=== PATIENT | female | born 1965 | race Asian ===

== ENCOUNTER 2022-11-04 07:09 | Outpatient (CLI) | payer OTHER, SELFPAY ==
--- NOTE | ~2022-11-04 | MM_ITS ---
EXAMINATION: MM screening saji BI w maty HISTORY: Screening TECHNIQUE: Craniocaudal and mediolateral oblique 3-D tomosynthesis images were obtained and synthetic 2-D images were generated. CAD analysis was submitted and interpreted. COMPARISON: No prior studies BREAST PARENCHYMAL COMPOSITION: The breasts are heterogeneously dense, which may obscure small masses . FINDINGS: There are no suspicious masses, calcifications or architectural distortion in the right rachael ast to suggest malignancy. There is a focal mass in the upper outer quadrant of the left breast conta ining calcifications. There is a focal asymmetry centrally in the left breast on MLO view. IMPRESSION: 1. Left breast mass and focal asymmetry. 2. Additional spot compression and mediolateral views with possible follow-up breast ultrasound recom mended. BI-RADS Category 0: Incomplete: Needs additional imaging evaluation. Reviewed, dictated and finalized at location A. LSTERER HELPER IMPRESSION: 1. Left breast mass and focal asymmetry. 2. Additional spot compression and mediolateral views with possible follow-up b reast ultrasound recommended. BI-RADS Category 0: Incomplete: Needs additional imaging evaluation.
== END 2022-11-04 07:10 | disposition home or self-care (01) ==
LOC: ANHIMG 07:16
PROVIDERS: PCP Obstetrics & Gynecology; Visit Provider Student in an Organized Health Care Education/Training Program
DX: Z12.31 Encounter for screening mammogram for malignant neoplasm of breast (principal); R92.8 Other abnormal and inconclusive findings on diagnostic imaging of breast
CPT/HCPCS: 77063; 77067

== ENCOUNTER 2023-01-30 12:50 | Outpatient (CLI) | payer OTHER, SELFPAY ==
--- NOTE | ~2023-01-30 | MMUS_ITS ---
EXAMINATION: MM diagnostic saji LT w maty, US breast LT complete HISTORY: Left upper outer quadrant breast mass with calcifications and focal asymmetry in central lef t breast on MLO view where reported on 11/04/2022 screening mammogram TECHNIQUE: Additional 3-D tomosynthesis images of the left breast were performed and synthetic 2-D im ages were generated. CAD analysis was submitted and interpreted. High resolution complete left breast ultrasound examination including all 4 quadrants and subareolar area was performed. COMPARISON: 11/04/2022 bilateral screening mammogram FINDINGS: MAMMOGRAPHIC FINDINGS: Circumscribed approximately 5 x 6 mm mass with several benign-appearing superficial calcifications is noted in the upper outer left breast anteriorly, benign in appearance, likely a partially calcified benign fibroadenoma. There is a benign calcified microhematomas. No suspicious mass, architectural distortion, malignant microcalcifications, skin thickening or retra ction of the left wrist is detected. ULTRASOUND: 1:00 4 cm from nipple: Parallel circumscribed hypoechoic 5 x 7 mm lesion without internal vascularity or posterior shadowing, which likely corresponds to the mammographic finding in the upper outer quad rant. 3:00 4 cm from nipple: 2.9 x 2.5 x 3.4 mm circumscribed sonolucent lesion with posterior enhancement, without internal vascularity or posterior shadowing, likely benign cyst. IMPRESSION: 1. Benign findings 2. Routine mammographic screening is recommended BI-RADS Category 2: Benign finding(s). Reviewed, dictated and finalized at location A. IMPRESSION: 1. Benign findings 2. Routine mammographic screening is recommended BI-RADS Category 2: Benign finding(s).
== END 2023-01-30 12:51 | disposition home or self-care (01) ==
LOC: ANHIMG 12:51
PROVIDERS: PCP Emergency Medicine; Visit Provider Obstetrics & Gynecology
DX: R92.8 Other abnormal and inconclusive findings on diagnostic imaging of breast (principal)
CPT/HCPCS: 76641; 77061; 77065; G0279

== ENCOUNTER 2023-09-16 16:01 | Emergency (ER) | payer OTHER, SELFPAY ==
--- NOTE | ~2023-09-16 | CT_ITS ---
EXAMINATION: CT abdomen pelvis w con DATE: 09/16/2023 17:50 INDICATION: generalized abdominal pain, vomiting, back pain TECHNIQUE: Computed tomography (CT) of the abdomen and pelvis was performed with 100 mL Omnipaque-350 intravenous contrast. Automated exposure control and iterative reconstruction technique were employe d. The dose-length product was 550.19 mGy-cm. COMPARISON: None. FINDINGS: Lower thorax: Minimal dependent atelectasis. Liver: Normal. Biliary/Gallbladder: Gallbladder is normal. No bile duct dilation. Pancreas: 5 mm cyst in the pancreatic body. No duct dilation. Spleen: Normal. Adrenals:No mass. Kidneys: No suspicious mass, obstructing stone, or hydronephrosis. Subcentimeter right upper pole hyp odensity, too small to characterize, but statistically most likely represents a cyst. GI tract: Moderate distal esophageal and gastric wall edema. No small or large bowel dilation. 7-8 mm diameter appendix, without hyperemia or any surrounding inflammatory change. Diverticulosis without diverticulitis. Mesentery/Peritoneum: No ascites, mass, or free air. Retroperitoneum: No mass. Atherosclerotic abdominal aortic and/or arterial calcifications. Pelvis: Pelvic organs are within normal limits. Soft Tissues: Soft tissues and body wall unremarkable. Bones: No acute osseous finding. IMPRESSION: Moderate esophagitis/gastritis. Incidental 5 mm pancreatic body cyst, recommend follow-up CT abdomen and pelvis with contrast in one year to assess stability. 7-8 mm diameter appendix, without any indication of inflammatory change. This is likely a normal find ing for this patient. Reviewed, dictated and finalized at location K. ESS MAKER IMPRESSION: Moderate esophagitis/gastritis. Incidental 5 mm pancreatic body cyst, recommend follow-up CT abdomen and pelvis with contrast in one year to assess stability. 7-8 mm diameter appendix, without any indication of inflammatory change. This i s likely a normal finding for this patient.
--- NOTE | ~2023-09-16 | CT_ITS ---
EXAMINATION: CT brain wo con DATE: 09/16/2023 17:50 INDICATION: vertigo . TECHNIQUE: Computed tomography (CT) of the head was performed without intravenous contrast. The mA wa s adjusted according to patient size. Iterative reconstruction technique was employed. The dose-lengt h product was 529.67 mGy-cm. COMPARISON: None. FINDINGS: No acute intracranial hemorrhage or extra-axial fluid collection. No hydrocephalus, mass, or herniation. No acute ischemic infarct. Unremarkable dural venous sinus attenuation. No acute osseous abnormality. The aerated spaces are clear. IMPRESSION: No acute intracranial process. Reviewed, dictated and finalized at location K. ENT CARRIER
[2023-09-16 15:59] VITALS: BP 140/80; PULSE 84; RESP 18; TEMP 36.8; O2SAT 100
--- NOTE | 2023-09-16 16:25 | ED.DIZZY ---
HPI - Dizziness General Chief Complaint: Dizziness Stated Complaint: dizzy with n/v Time Seen by Provider: 09/16/23 16:06 Source: patient Mode of arrival: ambulatory Limitations: no limitations History of Present Illness HPI Narrative: This is a 58-year-old female who presents to the ED via EMS for chief complaint of vomiting and dizziness onset 1 hour prior to arrival. Patient states that she was starting to feel sick and then had an episode of emesis. She reports after 4 episodes she started to feel dizzy. Reports it feels like the room is spinning. She feels like she has to keep her eyes closed. Denies abdominal pain but endorses back pain for the past 3 weeks. 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 Denies any problems with urination, bowel movements, neck pain, headache, chest pain, cough. Family states the patient has been under lot of stress family and work recently. Related Data Home Medications Medication Instructions Recorded Confirmed fvmozodvhbei-rzeupuxv-tberaww-folic 1 tablet PO DAILY 03/15/23 acid 400 mcg-vit K1 20 mcg tablet (One-A-Day Women's 50 Plus) Allergies Allergy/AdvReac Type Severity Reaction Status Date / Time No Known Allergies Allergy Verified 03/15/23 09:32 Review of Systems Review of Systems: All systems as dictated in [facility] Past Medical History Medical History Allergies delivery delivered Headache Surgical History Surgical History History of delivery Family History Family History Father Diabetes mellitus Heart problem Mother Diabetes mellitus Heart problem Sibling Diabetes mellitus Heart problem Social History Social History (Updated 03/15/23 @ 09:35 by Haritha Fields MA) Smoking status: Never smoker Alcohol intake: current Alcohol use details: occasional Substance use: never Lack of Transportation: No Lack of Food: Never True Current Housing: I Have Housing Concerned About Future Housing: No Difficulty Paying Gas/Electric Bills: No Difficulty Paying for Meds: No Currently Unemployed: No Education: Trade/Vocational Certificate Difficulty w/ Childcare or Family Care: No Living arrangements: with family Occupation/Education: occupation Gender identity (if verbalized by the patient): Female Sexual Orientation (if Verbalized by the Patient): Straight or Heterosexual Spiritual care concerns: No Exam Narrative: GENERAL: Appears ill. appears dry. HEAD: Normocephalic, atraumatic. EYES: PERRLA and EOMI. ENT: Nares clear, no rhinorrhea or epistaxis. Mucous membranes moist. Oropharynx without tonsillar hypertrophy exudate or other lesions. NECK: Supple. No adenopathy or masses. CHEST: No respiratory distress. Clear to auscultation. No wheezes rales or rhonchi HEART: Regular rate and rhythm. No murmur heard. Normal peripheral pulses. ABDOMEN: Generalized abdominal tenderness throughout the abdomen. Soft, nondistended, normal active bowel sounds. Negative peritoneal signs. MSK: Normal range of motion. No edema. SKIN: Warm, dry, no rash. NEURO: Alert and oriented x4. No focal deficits. 5/5 strength and sensation in the upper and lower extremities. No nystagmus. PSYCH: Normal mood and affect. Course Course Emergency Course: Re-evaluation at 5:30 p.m.: Feeling mildly improved. Re-evaluation at 6:19 p.m.: Feeling almost fully resolved. She would like to go home. Vital Signs Vital signs: Vital Signs Temperature 98.2 F 09/16/23 15:59 Pulse Rate 84 09/16/23 15:59 Respiratory Rate 18 09/16/23 15:59 Blood Pressure 140/80 09/16/23 15:59 Pulse Oximetry 100 09/16/23 15:59 Oxygen Delivery Room Air 09/16/23 15:59 Temperature 98.2 F 09/16/23 15:59 Pulse Rate 84
[2023-09-16 16:37] LABS: Basophils Percent Auto 0.4 % (0.2-1.2); Eosinophils Absolute Auto 0.3 K/mm3 (0-0.3); Eosinophils Percent Auto 2.8 % (0-4.4); Hematocrit 43.3 % (37.0-47.0); Hemoglobin 14.1 g/dL (12.0-15.0); Immature Granulocyte Absolute 0.12 K/mm3 (0.00-0.031); Immature Granulocyte Percent A 1.1 % (0-0.5); Lymphocytes Absolute Auto 2.09 K/mm3 (0.9-3.2); Lymphocytes Percent Auto 18.4 % (18.3-44.2); Mean Corpuscular HGB Conc 32.6 g/dl (32-36); Mean Corpuscular Hemoglobin 24.7 pg (26-34); Mean Corpuscular Volume 75.7 fl (80-100); Monocytes Absolute Auto 0.4 K/mm3 (0.1-0.6); Monocytes Percent Auto 3.8 % (2.6-8.5); Neutrophils Absolute Auto 8.4 K/mm3 (1.3-6.7); Neutrophils Percent Auto 73.5 % (45.5-73.1); Platelet Count Result 289 k/mm3 (150-375); Red Blood Count 5.72 M/mm3 (4.2-5.4); White Blood Count 11.4 K/mm3 (4.5-10.0)
[2023-09-16 16:47] LABS: Lipase 72 U/L (23-300)
[2023-09-16] MEDS: diphenhydrAMINE HCl INJ 50 MG/ML VIAL 25 MG IV PUSH (16:48)
[2023-09-16] MEDS: METOCLOPRAMIDE HCL INJ 10 MG/2 ML VIAL IV PUSH (16:48)
[2023-09-16] MEDS: SODIUM CHLORIDE 0.9% IV 1,000 ML 999 ML IV CONT (16:48)
[2023-09-16 16:49] LABS: Alanine Aminotransferase 25 U/L (6-35); Albumin Level 4.5 g/dL (3.5-5.1); Alkaline Phosphatase 92 U/L (38-126); Anion Gap 13 mmol/L (8-16); Aspartate Amino Transferase 23 U/L (14-36); Bilirubin,Total 0.5 mg/dL (0.2-1.3); Blood Urea Nitrogen 15 mg/dL (7-17); Calcium 9.3 mg/dL (8.4-10.2); Carbon Dioxide 22 mmol/L (22-30); Chloride 103 mmol/L (98-107); Estimated CRCL calculation 85 ml/min; Estimated Glomerular Filt Rate > 60; Glucose 176 mg/dL (65-110); Potassium 3.3 mmol/L (3.4-5.0); Sodium 138 mmol/L (137-145)
[2023-09-16 18:04] LABS: Appearance Urine Clear (Clear); Bacteria Urine None Seen /hpf; Bilirubin Urine Negative (Negative); Blood Urine Trace (Negative); Color Urine Yellow (Yellow); Glucose Urine UA Negative (Negative); Ketones Urine 3+ mg/dL (Negative); Leukocyte Esterase Ur Negative LEU/UL (Negative); Nitrate Urine Negative (Negative); Protein Urine 1+ mg/dL (Negative); RBC Urine 0-2 /hpf (0-2); Specific Grav Ur 1.026 (1.001-1.035); Squamous Epithelial Cell Urine Occasional /hpf (Few); Urobilinogen Urine 0.2 mg/dL (<2.0); WBC Urine 0-5 /hpf
[2023-09-16 18:05] LABS: Add Urine Microscopic? YES
[2023-09-16 18:25] VITALS: BP 137/89; PULSE 82; RESP 18; O2SAT 97
== END 2023-09-16 18:44 | disposition home or self-care (01) ==
PROVIDERS: Emergency Provider Physician Assistant; PCP Emergency Medicine
DX: R11.10 Vomiting, unspecified (principal)
CPT/HCPCS: 36415; 70450; 74177; 80053; 81001; 83690; 85025; 96361; 96374; 96375; 99284; J1200; J2765; J7030; Q9967

== ENCOUNTER 2023-09-20 09:05 | Outpatient (CLI) | payer OTHER, SELFPAY ==
[2023-09-20 14:37] LABS: Alanine Aminotransferase 21 U/L (6-35); Albumin Level 4.3 g/dL (3.5-5.1); Alkaline Phosphatase 81 U/L (38-126); Anion Gap 11 mmol/L (8-16); Aspartate Amino Transferase 36 U/L (14-36); Bilirubin,Total 0.7 mg/dL (0.2-1.3); Blood Urea Nitrogen 14 mg/dL (7-17); Calcium 9.3 mg/dL (8.4-10.2); Carbon Dioxide 28 mmol/L (22-30); Chloride 101 mmol/L (98-107); Cholesterol 193 mg/dL (0-200); Estimated Glomerular Filt Rate > 60; Glucose 90 mg/dL (65-110); HDL Direct 37 mg/dL; Potassium 4.4 mmol/L (3.4-5.0); Sodium 140 mmol/L (137-145); Triglycerides 152 mg/dL (<150)
[2023-09-20 14:48] LABS: LDL Cholesterol Direct 111 mg/dL
[2023-09-20 15:32] LABS: Hemoglobin A1C 5.3 % (<5.7)
== END 2023-09-20 09:06 | disposition home or self-care (01) ==
LOC: ANHGOSHLAB 09:06
PROVIDERS: PCP Emergency Medicine; Visit Provider Emergency Medicine
DX: R73.9 Hyperglycemia, unspecified (principal)
CPT/HCPCS: 36415; 80053; 80061; 83036

== ENCOUNTER 2024-04-12 15:58 | Outpatient (CLI) | payer BC, SELFPAY ==
[2024-04-12 18:56] LABS: Basophils Absolute Auto 0.1 K/mm3 (0.0-0.1); Basophils Percent Auto 0.6 % (0.2-1.2); Eosinophils Absolute Auto 0.6 K/mm3 (0-0.3); Eosinophils Percent Auto 5.9 % (0-4.4); Hematocrit 43.8 % (37.0-47.0); Hemoglobin 14.2 g/dL (12.0-15.0); Immature Granulocyte Absolute 0.05 K/mm3 (0.00-0.031); Immature Granulocyte Percent A 0.5 % (0-0.5); Lymphocytes Absolute Auto 2.36 K/mm3 (0.9-3.2); Lymphocytes Percent Auto 22.5 % (18.3-44.2); Mean Corpuscular HGB Conc 32.4 g/dl (32-36); Mean Corpuscular Hemoglobin 24.9 pg (26-34); Mean Corpuscular Volume 76.7 fl (80-100); Monocytes Absolute Auto 0.5 K/mm3 (0.1-0.6); Monocytes Percent Auto 4.7 % (2.6-8.5); Neutrophils Absolute Auto 6.9 K/mm3 (1.3-6.7); Neutrophils Percent Auto 65.8 % (45.5-73.1); Platelet Count Result 287 k/mm3 (150-375); Red Blood Count 5.71 M/mm3 (4.2-5.4); Red Cell Distribution Width 14.5 % (11.5-14.5); White Blood Count 10.5 K/mm3 (4.5-10.0)
[2024-04-12 19:14] LABS: Alanine Aminotransferase 18 U/L (6-35); Albumin Level 4.6 g/dL (3.5-5.1); Alkaline Phosphatase 80 U/L (38-126); Anion Gap 5 mmol/L (4-12); Aspartate Amino Transferase 28 U/L (14-36); Bilirubin,Total 0.4 mg/dL (0.2-1.3); Blood Urea Nitrogen 11 mg/dL (7-17); Calcium 9.3 mg/dL (8.4-10.2); Carbon Dioxide 29 mmol/L (22-30); Chloride 107 mmol/L (98-107); Estimated Glomerular Filt Rate > 60; Glucose 101 mg/dL (65-110); Sodium 141 mmol/L (137-145)
== END 2024-04-12 15:59 | disposition home or self-care (01) ==
LOC: ANHGOSHLAB 15:59
PROVIDERS: PCP Emergency Medicine; Visit Provider Emergency Medicine
DX: K62.5 Hemorrhage of anus and rectum (principal); R10.13 Epigastric pain
CPT/HCPCS: 36415; 80053; 85025

== ENCOUNTER 2024-05-10 00:21 | Day surgery (SDC) | payer BC, SELFPAY ==
--- NOTE | 2024-04-26 10:15 | SUR.PREOP ---
Patient called to reschedule his procedure since Dr. Reyes will be unavailable on May 27. Message left on pt's voicemail.
[2024-04-30 09:05] VITALS: BMI 23.3
[2024-05-10 08:42] VITALS: BP 124/89; PULSE 78; RESP 16; TEMP 36.1; O2SAT 100; BMI 23.9
[2024-05-10] MEDS: LACTATED RINGERS 1,000 ML 150 ML IV CONT (08:53)
--- NOTE | 2024-05-10 09:03 | PM.HPGS ---
History of Present Illness History of Present Illness Consent: Risks, benefits, and alternatives have been discussed and questions answered. Patient agrees to proceed with procedure. Chief complaint: Hemorrhage of anus and rectum, epigastric pain Narrative: Angella Burnette is a 59 year old female with epigastric pain and dyspepsia after some melas, here for egd and first colonoscopy- also noted blood in stools Review of Systems Review of Systems: All systems reviewed & are unremarkable except as noted in HPI and below PMFSH Past Medical History Medical History Allergies delivery delivered Headache Surgical History Surgical History History of delivery Family History Family History Father Diabetes mellitus Heart problem Mother Diabetes mellitus Heart problem Sibling Diabetes mellitus Heart problem Social History Social History Smoking status: Never smoker Alcohol intake: current Alcohol use details: Occasional beer Substance use: never Lack of Transportation: No Lack of Food: Never True Current Housing: I Have Housing Concerned About Future Housing: No Difficulty Paying Gas/Electric Bills: No Difficulty Paying for Meds: No Currently Unemployed: No Education: Trade/Vocational Certificate Difficulty w/ Childcare or Family Care: No Living arrangements: with family Occupation/Education: occupation Gender identity (if verbalized by the patient): Female Sexual Orientation (if Verbalized by the Patient): Straight or Heterosexual Spiritual care concerns: No Meds Home Medications and Allergies Home Medications Medication Instructions Recorded Confirmed Type vlnukjyxpedv-fgdnedrb-tpeuhga-folic 1 tablet PO DAILY 03/15/23 05/10/24 History acid 400 mcg-vit K1 20 mcg tablet (One-A-Day Women's 50 Plus) omeprazole 40 mg capsule,delayed 40 mg PO DAILY #30 caps 10/31/23 05/10/24 Rx release aspirin 81 mg capsule 81 mg PO DAILY 04/30/24 05/10/24 History Allergies Allergy/AdvReac Type Severity Reaction Status Date / Time No Known Allergies Allergy Verified 05/10/24 08:41 Vital Signs Vital Signs - 24 hr 05/10/24 08:42 Temperature 97.0 F L Pulse Rate 78 Respiratory Rate 16 Blood Pressure 124/89 Pulse Oximetry 100 Oxygen Delivery Room Air Exam Const: General: comfortable and no acute distress HENMT: Face/Nose/Sinus: Normal nares present Eyes: General: appearance normal, both eyes and all related structures Neck: Neck: no JVD Resp: Auscultation: clear to auscultation bilaterally Cardio: Rate: regular rate Rhythm: regular rhythm GI: Inspection: non-distended GI Palp: Yes Soft to palpation Skin: General skin exam: normal color Neuro: General: gait normal Speech: normal speech Extrem: General: normal to inspection Psych: Mental Status: mental status grossly normal Assessment and Plan Assessment and plan (1) Epigastric pain: Code(s): R10.13 - Epigastric pain Status: Acute Assessment and Plan: egd with bx (2) Blood per rectum: Code(s): K62.5 - Hemorrhage of anus and rectum Status: Acute Assessment and Plan: colonoscopy (3) Screening for colon cancer: Code(s): Z12.11 - Encounter for screening for malignant neoplasm of colon Status: Acute
--- NOTE | 2024-05-10 09:07 | WPDANESEPPF ---
Anes - Initial Pre Proc Eval Procedure: Operation Date: 05/10/24 10:00 Proposed Procedures p Esophagogastroduodenoscopy & Colonoscopy - Jose Antonio Lee MD Date/Time: 05/10/24 09:07 Surgeon: Jose Antonio Lee MD Pre Op Diagnosis: Hemorrhage of anus and rectum, epigastric pain Patient Data Age: 59 Gender: F Height: 1.57 m Weight: 59.3 kg Last Vital Signs Temp 97.0 F L 05/10/24 08:42 Pulse 78 05/10/24 08:42 Resp 16 05/10/24 08:42 BP 124/89 05/10/24 08:42 Pulse Ox 100 05/10/24 08:42 O2 Del Method Room Air 05/10/24 08:42 Allergies Allergy/AdvReac Type Severity Reaction Status Date / Time No Known Allergies Allergy Verified 05/10/24 08:41 Home Medications Medication Instructions Recorded Confirmed Type hjfvywnrozwp-clpocygt-twojwtj-folic 1 tablet PO DAILY 03/15/23 05/10/24 History acid 400 mcg-vit K1 20 mcg tablet (One-A-Day Women's 50 Plus) omeprazole 40 mg capsule,delayed 40 mg PO DAILY #30 caps 10/31/23 05/10/24 Rx release aspirin 81 mg capsule 81 mg PO DAILY 04/30/24 05/10/24 History Patient hx anesthesia problems: none Family hx anesthesia problems: none Results Review: All pre-operative results and documents have been reviewed as part of the pre-operative evaluation. [facility] Past Medical History Medical History Allergies delivery delivered Headache Surgical History Surgical History History of delivery Family History Family History Father Diabetes mellitus Heart problem Mother Diabetes mellitus Heart problem Sibling Diabetes mellitus Heart problem Social History Social History Smoking status: Never smoker Alcohol intake: current Alcohol use details: Occasional beer Substance use: never Lack of Transportation: No Lack of Food: Never True Current Housing: I Have Housing Concerned About Future Housing: No Difficulty Paying Gas/Electric Bills: No Difficulty Paying for Meds: No Currently Unemployed: No Education: Trade/Vocational Certificate Difficulty w/ Childcare or Family Care: No Living arrangements: with family Occupation/Education: occupation Gender identity (if verbalized by the patient): Female Sexual Orientation (if Verbalized by the Patient): Straight or Heterosexual Spiritual care concerns: No Anes - Eval Final PreProcedure Day of Procedure 05/10/24 09:07 Patient weight: overweight Heart: regular rate and rhythm Lungs: clear to auscultation Airway: Mallampati scale class II Neurological: alert and oriented Last oral intake: >/= 8 hours ASA classification: I Emergent: no Anesthetic plan: proceed Anesthesia type and monitoring: general GIVS and standard monitoring Results Review: All pre-operative results and documents have been reviewed as part of the pre-operative evaluation. Pt states that she can walk 1-2 fos, 1 mile without cp or sob. Informed Consent: The patient's anesthetic plan and its attendant risks and benefits were discussed with the patient/family/POA. Questions were solicited and answers provided to the satisfaction of the patient/family/POA.
--- NOTE | 2024-05-10 09:48 | SUR.OPER ---
EGD end 943 COLONOSCOPY START 947
[2024-05-10 10:02] VITALS: BP 101/66; PULSE 78; RESP 16; O2SAT 100
[2024-05-10 10:12] VITALS: BP 117/75; PULSE 69; RESP 16; O2SAT 97
[2024-05-10 10:22] VITALS: BP 135/84; PULSE 65; RESP 19; O2SAT 100
== END 2024-05-10 10:43 | disposition home or self-care (01) ==
PROVIDERS: PCP Emergency Medicine; Visit Provider Internal Medicine Gastroenterology
PROC: 0DJ08ZZ Inspection of Upper Intestinal Tract, Via Natural or Artificial Opening Endoscopic (ICD-10-PCS; CPT 43235; principal; 2024-05-10 10:00)
DX: K62.5 Hemorrhage of anus and rectum (principal); K57.30 Diverticulosis of large intestine without perforation or abscess without bleeding; D12.8 Benign neoplasm of rectum; K64.8 Other hemorrhoids; R10.13 Epigastric pain; K29.50 Unspecified chronic gastritis without bleeding
CPT/HCPCS: 43239; 45385; 88305; 88342; J7120

== ENCOUNTER 2025-04-23 18:35 | Emergency (ER) | payer OTHER, SELFPAY ==
--- NOTE | ~2025-04-23 | XR_ITS ---
XR chest 2V Ordering provider: Shelia Domingo APRN History: 60 years Female with . chest pain . Comparison: None. FINDINGS: MEDIASTINUM: The cardiac silhouette is not enlarged. LUNGS: No infiltrates, effusions or pneumothorax. OTHER: No free air under the diaphragm. IMPRESSION: No acute cardiopulmonary pathology. Reviewed, dictated and finalized at location A.
--- NOTE | 2025-04-23 18:37 | ECG_ITS ---
Test Date: 2025-04-23 18:41:58 Measurements Intervals Harrah Rate: 102 P: 8 ID: [id number] QRS: 29 QRSD: 94 T: -14 QT: 330 QTc: 432 Interpretive Statements SINUS TACHYCARDIA POSSIBLE LEFT ATRIAL ENLARGEMENT [-0.1mV P-WAVE IN V1/V2] LOW QRS VOLTAGE IN PRECORDIAL LEADS [QRS DEFLECTION < 1.0 mV IN CHEST LEADS] POSSIBLE INFERIOR MYOCARDIAL INFARCTION , OF INDETERMINATE AGE [30 ms Q WAVE IN II/aVF] No previous ECG available for comparison Electronically Signed On 04-24-2025 16:37:11 CDT by Arabella Corona
[2025-04-23 18:41] VITALS: BP 180/96; PULSE 101; RESP 18; TEMP 36.6; O2SAT 98
[2025-04-23] MEDS: ASPIRIN 81 MG CHEWABLE TABLET 324 MG PO (18:50)
[2025-04-23 18:53] LABS: Hematocrit 39.8 % (37.0-47.0); Hemoglobin 12.9 g/dL (12.0-15.0); Immature Granulocyte Percent A 0.3 % (0-0.5); Lymphocytes Absolute Auto 2.36 K/mm3 (0.9-3.2); Mean Corpuscular HGB Conc 32.4 g/dl (32-36); Mean Corpuscular Hemoglobin 23.8 pg (26-34); Mean Corpuscular Volume 73.6 fl (80-100); Nucleated Red Blood Cells Absolute Auto 0.000 K/mm3 (0.0-0.012); Nucleated Red Blood Cells Perc 0.0 % (0.0-0.2); Platelet Count Result 252 k/mm3 (150-375); Red Blood Count 5.41 M/mm3 (4.2-5.4); White Blood Count 9.8 K/mm3 (4.5-10.0)
[2025-04-23 19:03] LABS: INR 1.0; Prothrombin Time 13.1 Seconds (11.1-14.7)
[2025-04-23 19:04] LABS: Alanine Aminotransferase 30 U/L (6-35); Albumin Level 4.3 g/dL (3.5-5.1); Alkaline Phosphatase 70 U/L (38-126); Anion Gap 11 mmol/L (4-12); Aspartate Amino Transferase 38 U/L (14-36); Bilirubin,Total 0.3 mg/dL (0.2-1.3); Calcium 9.0 mg/dL (8.4-10.2); Carbon Dioxide 22 mmol/L (22-30); Chloride 107 mmol/L (98-107); Glucose 100 mg/dL (65-110); Lipase 82 U/L (23-300); Partial Thromboplastin Time 31.9 Seconds (22.3-36.8); Potassium 3.8 mmol/L (3.4-5.0); Sodium 140 mmol/L (137-145); Total Protein 8.1 g/dL (6.3-8.2)
--- NOTE | 2025-04-23 19:05 | ED_ITS ---
HPI - Chest Pain General Chief Complaint: Chest Pain Stated Complaint: chest pain Time Seen by Provider: 04/23/25 19:03 Source: patient and family () Mode of arrival: ambulatory Limitations: language barrier (Mauritian as second language but fluent) History of Present Illness HPI narrative: This is a 60-year-old female who presents with left-sided chest pain beginning this morning when she woke up. She reports that is radiating inframammary and radiating to left lower ribs. She does feel short of breath with this. She has been having some subjective fevers but not diaphoretic. She had been vomiting 2 days ago a little bit but not today and does not feel nauseated. States this has never happened before. Has not seen a shingles roofer helper. Her pain is 7/10 in severity after taking an Advil approximately 3:00 p.m.. She describes the pain like needles and sometimes sharp/stabbing.No edema. No trauma Cardiac risk factors HTN: No - states occasional high blood pressures but not consistently and no diagnosis of HTN and not on medications HLD: No DM: No Obese: Smoker: No Personal history MS/TIA/CVA: No Fam Hx MS in first degree relative <65yo: Yes (states sister had an MS at age 36; both parents had MS (in mid 60s, believes one might have been at age 67) Related Data Home Medications ?Medication ?Instructions ?Recorded ?Confirmed ?Last Taken ?Type kqhfnqmevnpo-[id number]-cldqscl-folic 1 tablet PO DAILY 03/15/23 05/10/24 Unknown History acid 400 mcg-vit K1 20 mcg tablet (One-A-Day Women's 50 Plus) aspirin 81 mg capsule 81 mg PO DAILY 04/30/24 05/10/24 Unknown History Allergies Allergy/AdvReac Type Severity Reaction Status Date / Time No Known Allergies Allergy Verified 05/10/24 08:41 COUNTS INCLUDE 234 BEDS AT THE [facility] Past Medical History Medical History Headache Allergies delivery delivered Surgical History Surgical History History of delivery Family History Family History Father Diabetes mellitus Heart problem Acute myocardial infarction, Onset Age: 67 Mother Diabetes mellitus Heart problem Acute myocardial infarction Sibling Diabetes mellitus Heart problem Acute myocardial infarction, Onset Age: 36 Social History Social History Social History: Smoking status: Never smoker Alcohol intake: current Alcohol use details: Occasional beer Substance use: never Lack of Transportation: No Lack of Food: Never True Current Housing: I Have Housing Concerned About Future Housing: No Difficulty Paying Gas/Electric Bills: No Difficulty Paying for Meds: No Currently Unemployed: No Education: Trade/Vocational Certificate Difficulty w/ Childcare or Family Care: No Living arrangements: with family Occupation/Education: occupation Gender identity (if verbalized by the patient): Female Sexual Orientation (if Verbalized by the Patient): Straight or Heterosexual Spiritual care concerns: No Exam 2 Narrative: GENERAL: Well-appearing, well-nourished, and in no acute distress. HEAD: Normocephalic, atraumatic. EYES: Non injected, non icteric ENT: Nares clear, no rhinorrhea or epistaxis. Gross auditory acuity intact. NECK: Supple. No meningismus. CHEST: Speaking in full sentences. No respiratory distress. Lungs clear to auscultation HEART: Regular rate and rhythm at the time of my exam. . ABDOMEN: Soft, nondistended. EXTREMITIES: Normal range of motion. No lower extremity edema. SKIN: Warm, dry, no rash, including no rash/vesicles over area of pain NEURO: No focal deficits. Alert and oriented. Answering questions. Following commands. Normal speech without aphasia or dysarthria. PSYCH: Normal mood and affect. Course Vital Signs Vital signs: Vital Signs Temperature 97.8 F 04/23/25 18:41 Pulse Rate 101 H 04/23/25 18:41 Respiratory Rate 18 04/23/25 18:41 Blood Pressure 180/96 H 04/23/25 18:41 Pulse Oximetry 98 04/23/25 18:41 Oxygen Delivery Room Air 04/23/25 18:41 Temperature 97.9 F 04/23/25 23:26 Pulse Rate 71 04/23/25 23:26 Respiratory Rate 14 04/23/25 23:26 Blood Pressure 117/81 04/23/25 23:26 Pulse Oximetry 97 04/23/25 23:26 Oxygen Delivery Room Air 04/23/25 23:25 MDM - Chest Pain MDM Narrative Medical decision making narrative: Patient presents with left-sided chest pain started this morning upon waking up. In the emergency department she is afebrile vital signs notable for mild tachycardia as well as hypertension. HEART SCORE History 2 highly suspicious 1 moderately suspicious 0 slightly suspicious History score [address] depression/elevation not due to LBBB, LVH, or digoxin [address] depression but LBBB, LVH, nonspecific repolarization changes 0 normal ECG score 1 Age 2 >/= 65 1 45-64 0 <45 Age score 1 Risk factors (HTN, hypercholesterolemia, DM, obesity with BMI >30, current smoker or cessation </=3mo), positive fam hx with parent or sibling with CVD before age 65, atherosclerotic disease (prior MS, PCI/CABG, CVA/TIA, or peripheral arterial disease) 2 >/= 3 risk factors or history of atherosclerotic dz 1 - 1-2 risk factors 0 no known risk factors Risk factor score 1 Initial Troponin 2 >3 times normal limit 1 1-3 times normal limit 0 less than or equal to normal limit Troponin score 0 Total HEART Score 3 CBC without marked abnormalities. D-dimer normal. Reassessed at 10:00 p.m.. Pain improving but still present. Denies it feeling like heartburn. Will trial nitro. Repeat troponin normal. Patient is reassessed states the nitro possibly helped. At this time it is reported that she had been lifting a lot of bags recently. The distribution of pain does not seem cardiac. This supports more of an overuse injury. Will give ketorolac. We discussed HEART score and that, even though low presumption that this is cardiac in nature, she would benefit from outpatient workup given her risk factors. In the interim, recommended [id number] analgesics medications. STable for discharge. VS WNL. Differential Diagnosis Differential diagnosis: Likely pneumothorax, stable angina, unstable angina pectoris, atypical chest pain, st elevation myocardial infarction, costochondritis, chest pain and other (zoster; pneumonia; acute viral syndrome; PE) Lab Data Attestation: I reviewed the patient's lab results. 04/23/25 18:48 04/23/25 18:48 Labs: Lab Results 04/23/25 04/23/25 04/23/25 Range/Units 18:48 19:29 21:42 WBC 9.8 (4.5-10.0) K/mm3 RBC 5.41 H (4.2-5.4) M/mm3 Hgb 12.9 (12.0-15.0) g/dL Hct 39.8 (37.0-47.0) % MCV 73.6 L (80-100) fl MCH 23.8 L (26-34) pg MCHC 32.4 (32-36) g/dl RDW 13.9 (11.5-14.5) % Plt Count 252 (150-375) k/mm3 MPV 9.6 (7.4-10.4) fl Immature Gran % (Auto) 0.3 (0-0.5) % Neut % (Auto) 63.3 (45.5-73.1) % Lymph % (Auto) 24.0 (18.3-44.2) % Henry % (Auto) 8.3 (2.6-8.5) % Eos % (Auto) 3.7 (0-4.4) % Baso % (Auto) 0.4 (0.2-1.2) % Lymph # (Auto) 2.36 (0.9-3.2) K/mm3 Henry # (Auto) 0.8 H (0.1-0.6) K/mm3 Eos # (Auto) 0.4 H (0-0.3) K/mm3 Baso # (Auto) 0.0 (0.0-0.1) K/mm3 Abs Immat Gran (auto) 0.03 (0.00-0.031) K/mm3 Absolute Neuts (auto) 6.2 (1.3-6.7) K/mm3 Absolute Nucleated RBC 0.000 (0.0-0.012) K/mm3 Band Neutrophils % 0 (0-6) % Nucleated RBC % 0.0 (0.0-0.2) % Platelet Estimate Adequate (Adequate) Microcytosis 1+ (NORMAL) Schistocytes None seen PT 13.1 (11.1-14.7) Seconds INR 1.0 APTT 31.9 (22.3-36.8) Seconds D-Dimer 0.44 (<0.48) ug/mL Sodium 140 (137-145) mmol/L Potassium 3.8 (3.4-5.0) mmol/L Chloride 107 (98-107) mmol/L Carbon Dioxide 22 (22-30) mmol/L Anion Gap 11 (4-12) mmol/L BUN 13 (7-17) mg/dL Creatinine 0.56 L (0.7-1.0) mg/dL Estim Creat Clear Calc Not Reportable Estimated GFR > 60 (59 - ) Glucose 100 (65-110) mg/dL Calcium 9.0 (8.4-10.2) mg/dL Total Bilirubin 0.3 (0.2-1.3) mg/dL AST 38 H (14-36) U/L ALT 30 (6-35) U/L Alkaline Phosphatase 70 (38-126) U/L Troponin I < 0.012 < 0.012 (0.000-0.034) ng/mL Total Protein 8.1 (6.3-8.2) g/dL Albumin 4.3 (3.5-5.1) g/dL Lipase 82 (23-300) U/L Influenza A (RT-PCR) Negative (Negative) Influenza B (RT-PCR) Negative (Negative) RSV (RT-PCR) Negative (Negative) SARS-CoV-2 RNA (RT-PCR) Negative (Negative) Imaging Data Attestation: I personally reviewed and interpreted this imaging study as follows: My impression: Negative for acute intrathoracic process on my independent interpretation of chest x-ray Radiologist's impression: Impressions Chest X-Ray 04/23/25 19:11 IMPRESSION: No acute cardiopulmonary pathology. ECG Data EKG #1: Attestation: I personally reviewed and interpreted this ECG as follows: ECG completion date: 04/23/25 ECG completion time: 18:41 Prior ECG tracings: not available for review (No previous in EMR) Interpretation: Sinus tachycardia at a rate of 102 beats per minute. AL interval 148. QRS 94. QT/QTC 330/432. Good R-wave progression across the precordial leads. T-wave inversions in leads 3 and AVF but not in contiguous inferior lead 2. There is also T-wave inversion in V3, possibly due to lead placement. No other T-wave inversions across precordial leads V4 through V6. EKG #2: Attestation: I personally reviewed and interpreted this ECG as follows: ECG completion date: 04/23/25 ECG completion time: 21:46 Interpretation: Normal sinus rhythm at a rate of 70 beats per minute. AL interval 158. QRS 98. QT/QTC 407/427. Good R-wave progression across the precordial leads. T-wave inversions in 3 and slightly biphasic in AVF but upright in normal in contiguous inferior lead 2. T-wave is flat in V3 but otherwise no T-wave inversions throughout the precordial leads. Discharge Plan Discharge Clinical Impression: Chest pain Patient Disposition: Home Condition: Stable Instructions: Antibiotic Form, Chest Pain (DC) Additional Instructions: Acetaminophen/Tylenol is safe to take with NSAIDs (ibuprofen/Motrin) for pain relief. Follow-up with your primary care physician. The name of a shingles roofer helper is also listed below for follow-up given, as we discussed, you are LOW but not NO risk. Return to the emergency department any new or worsening symptoms. Patient Language: Mauritian Prescriptions: New acetaminophen 650 mg tablet extended release 650 mg PO Q8H PRN (Reason: pain) Qty: 30 0RF ibuprofen 200 mg capsule 400 mg PO Q8H PRN (Reason: pain) Qty: 30 0RF No Action One-A-Day Women's 50 Plus 400-20 mcg tablet 1 tablet PO DAILY aspirin 81 mg Capsule 81 mg PO DAILY omeprazole 40 mg capsule,delayed release(DR/EC) 40 mg PO DAILY Qty: 30 3RF Follow-up/Referrals: Xiang Nevarez MD [Physician] - Rochelle,Maurizio Knight MD [Primary Care Provider] - Stand Alone Forms: Work/School Release IP Time of Disposition: 23:16
[2025-04-23 19:08] LABS: Blood Urea Nitrogen 13 mg/dL (7-17)
[2025-04-23 19:09] LABS: Estimated Glomerular Filt Rate > 60
[2025-04-23 19:15] LABS: Band Neutrophils Percent 0 % (0-6); Microcytosis 1+ (NORMAL); Schistocytes None Seen; Troponin I < 0.012 ng/mL (0.000-0.034)
[2025-04-23] MEDS: ACETAMINOPHEN 325 MG TABLET 650 MG PO (19:52)
[2025-04-23 20:09] LABS: Influenza A QL RT-PCR Negative (Negative); Influenza B QL RT-PCR Negative (Negative); RSV RNA, RT-PCR Negative (Negative); SARS-CoV-2 RNA PCR Negative (Negative)
--- NOTE | 2025-04-23 21:46 | ECG_ITS ---
Test Date: 2025-04-23 21:46:10 Measurements Intervals [place] Rate: 70 P: 9 PA: 158 QRS: 28 QRSD: 98 T: 1 QT: 407 QTc: 439 Interpretive Statements SINUS RHYTHM LOW QRS VOLTAGE IN PRECORDIAL LEADS [QRS DEFLECTION < 1.0 mV IN CHEST LEADS] POSSIBLE INFERIOR MYOCARDIAL INFARCTION , PROBABLY OLD [30 ms Q WAVE IN II/aVF] Compared to ECG 04/23/2025 18:41:58 Sinus tachycardia no longer present Myocardial infarct finding still present Electronically Signed On 04-24-2025 16:37:55 CDT by Arabella Corona
[2025-04-23] MEDS: NITROGLYCERIN SL 0.4 MG TABLET SUBLINGUAL (22:09)
[2025-04-23 22:12] LABS: Troponin I < 0.012 ng/mL (0.000-0.034)
[2025-04-23] MEDS: KETOROLAC 15 MG/ML VIAL (*BKC) IV PUSH (22:45)
[2025-04-23 23:16] VITALS: BP 117/81; PULSE 63; RESP 20; O2SAT 98
[2025-04-23 23:17] VITALS: PULSE 63; RESP 14; O2SAT 99
[2025-04-23 23:26] VITALS: BP 117/81; PULSE 71; RESP 14; TEMP 36.6; O2SAT 97
== END 2025-04-23 23:29 | disposition home or self-care (01) ==
PROVIDERS: Registered Nurse; Emergency Provider Student in an Organized Health Care Education/Training Program; PCP Emergency Medicine
DX: R07.9 Chest pain, unspecified (principal); Z20.822 Contact with and (suspected) exposure to COVID-19; Z79.82 Long term (current) use of aspirin; R00.0 Tachycardia, unspecified; R94.31 Abnormal electrocardiogram [ECG] [EKG]
CPT/HCPCS: 36415; 71046; 80053; 83690; 84484; 85025; 85380; 85610; 85730; 87637; 93005; 96374; 99284; A9270; J1885